=== PATIENT | female | born 1945 | race Hispanic/Latino ===

== ENCOUNTER 2017-06-01 06:43 | Day surgery (SDC) | payer OTHER, MEDICARE ==
[2017-05-30 10:10] VITALS: BP 131/74
[2017-05-30 10:17] LABS: EOSINOPHILS % (AUTO) 2.8 % (0.0-8.0); HEMATOCRIT 46.6 % (36-48); LYMPHOCYTES % (AUTO) 51.2 % (21.0-51.0); MEAN CORPUSCULAR HEMOGLOBIN 29.5 pg (27.0-33.0); MEAN CORPUSCULAR HGB CONC 33.4 g/dL (32.0-36.0); MEAN CORPUSCULAR VOLUME 88.6 fL (79-99); MONOCYTES % (AUTO) 6.8 % (3.0-13.0); NEUTROPHILS % (AUTO) 38.2 % (40.0-77.0); NUCLEATED RED BLOOD CELLS 0.1 % (0.0-0.19); PLATELET COUNT (AUTO) 236 K/uL (130-400); RED BLOOD CELL COUNT(AUTO) 5.26 MIL/uL (4.00-5.50); RED CELL DISTRIBUTION WIDTH 14.4 % (11.0-15.5); WHITE BLOOD COUNT (AUTO) 7.5 K/uL (4.8-10.8)
[2017-05-30 10:18] LABS: APPEARANCE,URINE Clear (CLEAR); BILIRUBIN,URINE Negative (NEGATIVE); COLOR,URINE Yellow (YELLOW); GLUCOSE, URINE (UA) 250 mg/dL (NEGATIVE); KETONES,URINE Negative (NEGATIVE); LEUKOCYTE ESTERASE ,URINE Trace (NEGATIVE); NITRATE,URINE Negative (NEGATIVE); OCCULT BLOOD,URINE Negative (NEGATIVE); PH,URINE 6.5 (5.0-8.0); PROTEIN,URINE Negative (NEGATIVE)
[2017-05-30 10:26] LABS: CREATININE 0.8 mg/dL (0.5-1.5); POTASSIUM 4.1 mmol/L (3.5-5.1)
[2017-05-30 10:34] LABS: INR 1.18 (0.85-1.15); PARTIAL THROMBOPLASTIN TIME 24.2 SEC (26.3-35.5); PROTHROMBIN TIME 12.3 SEC (9.6-11.6)
[2017-05-30 11:02] LABS: BACTERIA,URINE Rare /HPF (None Seen); RBC,URINE 0-1 /HPF (0-1); SQUAMOUS EPITHELIAL CELL,UR Rare /LPF (0-2); WBC,URINE 0-1 /HPF (0-1)
[~2017-06-01] VITALS: Ht 160 cm; Wt 74.8 kg
[2017-06-01] VITALS (9 sets, daily range): BP systolic 101–122; BP diastolic 53–64
[~2017-06-01 06:43] MED LIST: ESOM40CA54 PO; FURO20TA4 PO; GLARGINE SQ; LISI2.5T2 PO; METF500T6 PO; PREG200C PO; SUMA25TA9 PO
[2017-06-01] MEDS ORDERED: SODIUM CHLORIDE 0.9% 1000ML 1,000 ML IV ONE (08:19)
[2017-06-01] MEDS ORDERED: LIDOCAINE HCL 2% 20ML ONE (11:31)
[2017-06-01] MEDS ORDERED: ISOVUE-370 50ML VIAL IV ONE (11:31)
[2017-06-01] MEDS ORDERED: IOPAMIDOL-370 100 ML VIAL IV ONE ×2 (11:31→12:30)
[2017-06-01] MEDS ORDERED: BIVALIRUDIN 250 MG/VIAL IV ONE (11:31)
[2017-06-01] MEDS ORDERED: HEPARIN SODIUM 1000UNIT/ML 10ML VIAL ONE (11:31)
[2017-06-01] MEDS ORDERED: SODIUM CHLORIDE 0.9% 1000ML 1,000 ML IV SCH (12:23)
[2017-06-01] MEDS ORDERED: DEXTROSE 50%-WATER 50 ML DISP.SYRIN IV PRN (12:30)
[2017-06-01] MEDS ORDERED: GLUCAGON 1MG KIT 1 MG ML IM PRN (12:30)
[2017-06-01] MEDS ORDERED: INSULIN HUMULIN R 100 UNIT/ML 3ML ONE (14:16)
[2017-06-01] MEDS ORDERED: INSULIN HUMULIN R 100 UNIT/ML 3ML SQ SCH (16:30)
== END 2017-06-01 17:30 | disposition home or self-care (01) ==
LOC: DAH 06:43
PROVIDERS: ATTEND Internal Medicine Cardiovascular Disease
DX: I11.9 Hypertensive heart disease without heart failure (principal); E11.51 Type 2 diabetes mellitus with diabetic peripheral angiopathy without gangrene; E78.5 Hyperlipidemia, unspecified; Z98.890 Other specified postprocedural states; Z90.710 Acquired absence of both cervix and uterus; Z90.49 Acquired absence of other specified parts of digestive tract; Z88.0 Allergy status to penicillin; Z79.01 Long term (current) use of anticoagulants
CPT/HCPCS: 36415; 71045; 80048; 81001; 82948 ×2; 85025; 85610; 85730; 93005; 93460; A4606; C1760; C1894 ×2; J1644; J1815; J3490; J7030; Q9967 ×3; J0583

== ENCOUNTER → 2018-05-02 | Outpatient (CLI) | payer OTHER, MEDICARE ==
[~2018-05-02] MED LIST changes: +GADODIAMIDE 5 MMOL/10 ML VIAL 5 MMOL/10 ML ML IV ONE; +METF-444 PO; -METF500T6 PO
== END | disposition home or self-care (01) ==
LOC: RAH 08:18
PROVIDERS: ATTEND Internal Medicine Hematology & Oncology
DX: S32.029A Unspecified fracture of second lumbar vertebra, initial encounter for closed fracture (principal); S32.039A Unspecified fracture of third lumbar vertebra, initial encounter for closed fracture; M47.897 Other spondylosis, lumbosacral region; M48.061 Spinal stenosis, lumbar region without neurogenic claudication; X58.XXXA Exposure to other specified factors, initial encounter; Y93.89 Activity, other specified; Y92.89 Other specified places as the place of occurrence of the external cause; Y99.8 Other external cause status
CPT/HCPCS: 72158; A9579

== ENCOUNTER → 2019-02-09 | Outpatient (CLI) | payer OTHER, MEDICARE ==
[~2019-02-09] MED LIST changes: -GADODIAMIDE 5 MMOL/10 ML VIAL 5 MMOL/10 ML ML IV ONE
[2019-02-09 12:20] LABS: CREATININE 0.9 mg/dL (0.5-1.5)
== END | disposition home or self-care (01) ==
LOC: LAB 11:11
PROVIDERS: ATTEND Neuromusculoskeletal Medicine & OMM
DX: M48.062 Spinal stenosis, lumbar region with neurogenic claudication (principal)
CPT/HCPCS: 36415; 82565; 84520

== ENCOUNTER → 2019-02-15 | Outpatient (CLI) | payer OTHER, MEDICARE ==
[~2019-02-15] MED LIST changes: +GADODIAMIDE 10 MMOL/20 ML VIAL IV ONE
== END | disposition home or self-care (01) ==
LOC: RAH 14:25
PROVIDERS: ATTEND Neuromusculoskeletal Medicine & OMM
DX: M48.062 Spinal stenosis, lumbar region with neurogenic claudication (principal)
CPT/HCPCS: 72158; A9579